=== PATIENT | female | born 1990 | race Hispanic/Latino ===

== ENCOUNTER 2018-12-20 12:55 | Emergency (ER) | payer OTHER ==
[~2018-12-20] VITALS: Ht 162.6 cm; Wt 85.7 kg
[2018-12-20] MEDS ORDERED: GLUCOPHAGE1000 MG PO (13:14)
[2018-12-20] MEDS ORDERED: NAPROSYN500 MG PO (14:14)
[2018-12-20] MEDS ORDERED: ULTRAM50 MG PO (14:14)
[2018-12-20] MEDS ORDERED: CYCLOBENZAPRINE5 MG PO (14:14)
== END 2018-12-20 14:30 | disposition home or self-care (01) ==
LOC: ED 12:55
DX: M62.830 Muscle spasm of back (principal); Z88.8 Allergy status to other drugs, medicaments and biological substances
CPT/HCPCS: 81001; 96372; 99283-25; J1885